=== PATIENT | male | born 1980 | race American Indian/Alaskan Native ===

== ENCOUNTER 2021-06-29 16:41 | Emergency (ER) | payer OTHER ==
[2021-06-29 16:48] VITALS: BP 134/78
--- NOTE | 2021-06-29 18:02 | Emergency Department Report ---
ED General Adult HPI - General Chief complaint: Pain General Stated complaint: PAIN THROUGHOUT BODY Time Seen by Provider: 06/29/21 17:27 Source: patient Mode of arrival: Ambulatory Limitations: No Limitations - History of Present Illness Initial comments: Patient is a 41-year-old male presents emergency room complaints of intermittent, diffuse joint pain that began a few weeks ago. He denies any fall or injury. He denies ever having this in the past. He states that he gets a tingling sensation in his feet. He denies any known history of diabetes. He denies any complete numbness, weakness,, drainage, swelling, redness, increased warmth, chills, fever. No past medical history. No allergies to medications. - Related Data Previous Rx's Medication Instructions Recorded Last Taken Type Gabapentin 100 mg PO Q8HR #30 capsule 06/29/21 Unknown Rx Meloxicam [Mobic] 7.5 mg PO QDAY #20 tablet 06/29/21 Unknown Rx ED Review of Systems ROS: Stated complaint: PAIN THROUGHOUT BODY Other details as noted in HPI Comment: All other systems reviewed and negative ED Past Medical Hx - Medications Home Medications: Home Medications Medication Instructions Recorded Confirmed Last Taken Type Gabapentin 100 mg PO Q8HR #30 capsule 06/29/21 Unknown Rx Meloxicam [Mobic] 7.5 mg PO QDAY #20 tablet 06/29/21 Unknown Rx ED Physical Exam - General Limitations: No Limitations General appearance: alert, in no apparent distress - Head Head exam: Present: atraumatic, normocephalic - Eye Eye exam: Present: normal appearance - ENT ENT exam: Present: mucous membranes moist - Extremities Exam Extremities exam: Present: other (multiple calluses present to the hands and feet, there are bunions present to the feet, there are small circular hyperpigmented macules to the hands and the feet, no bony ttp of the BUE/BLE, no joint edema, no erythema, no increased warmth, no drainage, no ulceration) - Neurological Exam Neurological exam: Present: alert, oriented X3 - Psychiatric Psychiatric exam: Present: normal affect, normal mood - Skin Skin exam: Present: warm, dry ED Course Vital Signs 06/29/21 16:46 Temperature 98.5 F Pulse Rate 68 Respiratory 16 Rate Blood Pressure 134/78 O2 Sat by Pulse 100 Oximetry ED Medical Decision Making - Lab Data Result diagrams: 06/29/21 17:34 01/03/22 17:34 Lab Results 06/29/21 06/29/21 06/29/21 Range/Units 17:34 17:34 17:34 WBC 5.9 (4.5-11.0) K/mm3 RBC 5.53 H (3.65-5.03) M/mm3 Hgb 15.7 H (11.8-15.2) gm/dl Hct 48.1 H (35.5-45.6) % MCV 87 (84-94) fl MCH 28 (28-32) pg MCHC 33 (32-34) % RDW 12.8 L (13.2-15.2) % Plt Count 330 (140-440) K/mm3 Lymph % (Auto) 30.7 (13.4-35.0) % [place] % (Auto) 13.3 H (0.0-7.3) % Eos % (Auto) 1.8 (0.0-4.3) % Baso % (Auto) 0.9 (0.0-1.8) % Lymph # (Auto) 1.8 (1.2-5.4) K/mm3 [place] # (Auto) 0.8 (0.0-0.8) K/mm3 Eos # (Auto) 0.1 (0.0-0.4) K/mm3 Baso # (Auto) 0.1 (0.0-0.1) K/mm3 Seg Neutrophils % 53.3 (40.0-70.0) % Seg Neutrophils # 3.1 (1.8-7.7) K/mm3 Sodium 134 L (137-145) mmol/L Potassium 4.7 (3.6-5.0) mmol/L Chloride 99.0 (98-107) mmol/L Carbon Dioxide 20 L (22-30) mmol/L Anion Gap 20 mmol/L BUN 9 (9-20) mg/dL Creatinine 0.8 (0.8-1.3) mg/dL Estimated GFR > 60 ml/min BUN/Creatinine Ratio 11 % Glucose 89 (75-100) mg/dL Uric Acid 4.9 (3.5-7.6) mg/dL Calcium 9.8 (8.4-10.2) mg/dL Total Bilirubin 0.50 (0.1-1.2) mg/dL AST 18 (5-40) units/L ALT 9 (7-56) units/L Alkaline Phosphatase 93 (35-129) units/L Total Protein 8.1 (6.3-8.2) g/dL Albumin 3.9 (3.9-5) g/dL Albumin/Globulin Ratio 0.9 % Syphilis IgG Antibody Nonreactive (NonReactive) - Medical Decision Making Patient is a 41-year-old male presents emergency room complaints of intermittent, diffuse joint pain that began a few weeks ago. He denies any fall or injury. He denies ever having this in the past. He states that he gets a tingling sensation in his feet. He denies any known history of diabetes. He denies any complete numbness, weakness,, drainage, swelling, redness, increased warmth, chills, fever. No past medical history. No allergies to medications. vss. on exam: multiple calluses present to the hands and feet, there are bunions present to the feet, there are small circular hyperpigmented macules to the hands and the feet, no bony ttp of the BUE/BLE, no joint edema, no erythema, no increased warmth, no drainage, no ulceration. No signs of septic joint or cellulitis. Labs are stable. Syphilis test is negative. Advised patient that he would need to follow-up with a primary care doctor for work-up for polyarthropathy. Patient's blood glucose is normal. Advised patient that he needs to follow-up with a loss prevention consultant in regards to bunions and calluses. Patient given prescription for medication. Advised patient please take medication as prescribed. follow up with a primary care doctor. follow up with a loss prevention consultant. return to the emergency room for any new or worsening symptoms. Critical care attestation.: If time is entered above; I have spent that time in minutes in the direct care of this critically ill patient, excluding procedure time. ED Disposition Clinical Impression: Callus, Rash Joint pain Qualifiers: Joint pain location: unspecified Qualified Code(s): M25.50 - Pain in unspecified joint Disposition: 01 HOME / SELF CARE / HOMELESS Is pt being admited?: No Does the pt Need Aspirin: No Condition: Stable Instructions: Corns and Calluses, Joint Pain Additional Instructions: please take medication as prescribed. follow up with a primary care doctor. follow up with a loss prevention consultant. return to the emergency room for any new or worsening symptoms. Prescriptions: Gabapentin 100 mg PO Q8HR #30 capsule Meloxicam [Mobic] 7.5 mg PO QDAY #20 tablet Referrals: PRIMARY CAREMD [Primary Care Provider] - 3-5 Days CARA HUERTA MD [Staff Physician] - 3-[address] [facility] [Provider Group] - 3-5 Days MATEUS MENDEZ DPM [Staff Physician] - 3-5 Days Time of Disposition: 18:48 Print Language: DOMINICAN
[2021-06-29 18:07] LABS: Basophils # (Auto) 0.1 K/mm3 (0.0-0.1); Basophils % (Auto) 0.9 % (0.0-1.8); Eosinophils # (Auto) 0.1 K/mm3 (0.0-0.4); Eosinophils % (Auto) 1.8 % (0.0-4.3); Hematocrit 48.1 % (35.5-45.6); Hemoglobin 15.7 gm/dl (11.8-15.2); Lymphocytes # (Auto) 1.8 K/mm3 (1.2-5.4); Lymphocytes % (Auto) 30.7 % (13.4-35.0); Mean Corpuscular HGB Conc 33 % (32-34); Mean Corpuscular Volume 87 fl (84-94); Monocytes # (Auto) 0.8 K/mm3 (0.0-0.8); Monocytes % (Auto) 13.3 % (0.0-7.3); Platelet Count 330 K/mm3 (140-440); Red Blood Count 5.53 M/mm3 (3.65-5.03); Red Cell Distribution Width 12.8 % (13.2-15.2)
[2021-06-29 18:27] LABS: Alanine Aminotransferase 9 units/L (7-56); Albumin 3.9 g/dL (3.9-5); BUN/Creatinine Ratio 11; Blood Urea Nitrogen 9 mg/dL (9-20); Calcium 9.8 mg/dL (8.4-10.2); Hemolysis Index 9; Uric Acid 4.9 mg/dL (3.5-7.6)
== END 2021-06-29 19:06 | disposition home or self-care (01) ==
LOC: ED 16:41
DX: L84 Corns and callosities (principal); R21 Rash and other nonspecific skin eruption; M25.50 Pain in unspecified joint
CPT/HCPCS: 36415; 80053; 84550; 85025; 86592; 99283

== ENCOUNTER 2021-09-18 12:41 | Emergency (ER) | payer OTHER ==
[2021-09-18 14:02] VITALS: BP 133/76
[2021-09-18 18:10] LABS: Bilirubin,Urine NEG (Negative); Blood,Urine LG (Negative); Color,Urine Red (Yellow); Urobilinogen,Urine < 2.0 mg/dL (<2.0)
[2021-09-18 18:15] LABS: RBC,Urine > 182.0 /HPF (0.0-6.0)
[2021-09-18 18:16] LABS: WBC,Urine < 1.0 /HPF (0.0-6.0)
--- NOTE | 2021-09-18 20:31 | Cat Scan Report ---
CT ABDOMEN AND PELVIS WITHOUT CONTRAST HISTORY: flank and right pelvic pain. COMPARISON: None. TECHNIQUE: CT images of the abdomen and pelvis were obtained without administration of intravenous co ntrast. All CT scans at this location are performed using CT dose reduction for ALARA by means of au tomated exposure control. FINDINGS: Lungs/bones: Lung bases appear normal Abdomen/pelvis: Within limits of a noncontrast exam the liver, spleen, adrenal glands, pancreas, gal lbladder and upper GI tract appear normal. No definite right renal stones. Mild inflammation surround ing the left kidney. The distal ureters not well seen. There is a tiny brian of calcification left pe lvis however the ureter is not well visualized. No ureteral dilatation is seen. Appendix appears norm al. There is soft tissue density overlying the left abdominal wall. Small fluid collection is seen ce ntrally measuring 1.8 cm IMPRESSION: 1. Mild inflammatory stranding surrounding bilateral kidneys left slightly greater than right. Infect ion/pyelonephritis cannot be excluded. There is a tiny brian of calcification overlying the left pelv is however the ureters are not well seen distally. No hydronephrosis. 2. Mild inflammatory change in the left abdominal wall. Some mild inflammation and small fluid collec tion. Small developing abscess cannot be excluded. Clinical correlation. Signer Name: Chino Henderson MD Signed: 09/18/2021 8:26 PM Workstation Name: [id number]
[2021-09-18] MEDS ORDERED: oxyCODONE /ACETAMINOPHEN 5-325MG TAB PO ONE (21:04)
[2021-09-18] MEDS ORDERED: levoFLOXacin 750 MG TAB PO ONE (21:04)
--- NOTE | 2021-09-18 21:19 | Emergency Department Report ---
ED General Adult HPI - General Chief complaint: Urogenital-Male Stated complaint: BLOOD IN URINE/CUT BUMP ON FACE Time Seen by Provider: 09/18/21 18:17 Source: patient Mode of arrival: Ambulatory Limitations: No Limitations - History of Present Illness Initial comments: 41-year-old -Turkish male just emerged department complaining of a couple day history of flank pain associated with bloody urine with increased urinary urgency of unknown etiology. Ports no fever, chills, sweats. No chest pain palpitation. No nausea, no vomiting -: Gradual Location: abdomen Radiation: back Quality: burning, aching, dull Consistency: constant Improves with: none Worsens with: none Associated Symptoms: denies: chest pain, cough, diaphoresis, loss of appetite, malaise, nausea/vomiting, rash, shortness of breath, syncope, weakness - Related Data Previous Rx's Medication Instructions Recorded Last Taken Type Gabapentin 100 mg PO Q8HR #30 capsule 06/29/21 Unknown Rx Meloxicam [Mobic] 7.5 mg PO QDAY #20 tablet 06/29/21 Unknown Rx Ciprofloxacin HCl 500 mg PO BID #20 09/18/21 Unknown Rx metroNIDAZOLE [Flagyl] 500 mg PO Q8HR #30 tab 09/18/21 Unknown Rx traMADoL [Ultram] 50 mg PO Q6HR PRN #20 tablet 09/18/21 Unknown Rx Allergies Allergy/AdvReac Type Severity Reaction Status Date / Time No Known Allergies Allergy Unverified 09/18/21 13:57 ED Review of Systems ROS: Stated complaint: BLOOD IN URINE/CUT BUMP ON FACE Other details as noted in HPI Comment: All other systems reviewed and negative ED Past Medical Hx - Past Medical History Previous Medical History?: No - Surgical History Past Surgical History?: No - Medications Home Medications: Home Medications Medication Instructions Recorded Confirmed Last Taken Type Gabapentin 100 mg PO Q8HR #30 capsule 06/29/21 Unknown Rx Meloxicam [Mobic] 7.5 mg PO QDAY #20 tablet 06/29/21 Unknown Rx Ciprofloxacin HCl 500 mg PO BID #20 09/18/21 Unknown Rx metroNIDAZOLE [Flagyl] 500 mg PO Q8HR #30 tab 09/18/21 Unknown Rx traMADoL [Ultram] 50 mg PO Q6HR PRN #20 tablet 09/18/21 Unknown Rx ED Physical Exam - General Limitations: No Limitations General appearance: alert, in no apparent distress - Head Head exam: Present: atraumatic, normocephalic, normal inspection - Eye Eye exam: Present: normal appearance, PERRL, EOMI Pupils: Present: normal accommodation - ENT ENT exam: Present: normal exam, normal orophraynx, mucous membranes moist, TM's normal bilaterally - Neck Neck exam: Present: normal inspection, full ROM - Respiratory Respiratory exam: Present: normal lung sounds bilaterally. Absent: respiratory distress, wheezes, rales, chest wall tenderness, accessory muscle use - Cardiovascular Cardiovascular Exam: Present: regular rate, normal rhythm. Absent: systolic murmur, diastolic murmur, rubs, gallop - GI/Abdominal GI/Abdominal exam: Present: soft, tenderness, normal bowel sounds. Absent: hyperactive bowel sounds, hypoactive bowel sounds, organomegaly, mass, bruit, pulsatile mass - Rectal Rectal exam: Present: deferred - Extremities Exam Extremities exam: Present: normal inspection - Back Exam Back exam: Present: normal inspection, CVA tenderness (R). Absent: paraspinal tenderness, vertebral tenderness - Neurological Exam Neurological exam: Present: alert, oriented X3, CN II-XII intact, normal gait - Psychiatric Psychiatric exam: Present: normal affect, normal mood - Skin Skin exam: Present: warm, dry, intact, normal color. Absent: rash ED Course Vital Signs 09/18/21 09/18/21 13:59 14:01 Temperature 98.2 F Pulse Rate 91 H Respiratory 20 Rate Blood Pressure 133/76 O2 Sat by Pulse 98 Oximetry Critical care attestation.: If time is entered above; I have spent that time in minutes in the direct care of this critically ill patient, excluding procedure time. ED Disposition Clinical Impression: Hematuria, Pyelonephritis Disposition: HOME / SELF CARE / HOMELESS Is pt being admited?: No Does the pt Need Aspirin: No Condition: Stable Instructions: Pyelonephritis, Adult Prescriptions: Ciprofloxacin HCl 500 mg PO BID #20 metroNIDAZOLE [Flagyl] 500 mg PO Q8HR #30 tab traMADoL [Ultram] 50 mg PO Q6HR PRN #20 tablet PRN Reason: Pain Referrals: [facility] [Provider Group] - 2-3 Days [facility] [Provider Group] - 3-5 Days PRIMARY CAREMD [Primary Care Provider] - 3-5 Days
== END 2021-09-18 21:33 | disposition home or self-care (01) ==
LOC: ED 12:41
DX: N12 Tubulo-interstitial nephritis, not specified as acute or chronic (principal); R31.9 Hematuria, unspecified
CPT/HCPCS: 74176; 81001; 99284